=== PATIENT | female | born 1980 | race Caucasian/White ===

== ENCOUNTER 2016-11-27 11:51 | Inpatient (IN) | payer MEDICAID ==
[~2016-11-27] VITALS: Ht 167.6 cm; Wt 63.1 kg
[~2016-11-27 11:51] MED LIST: ALBU0.084; TRAM-297
[2016-11-27] MEDS ORDERED: SODIUM CHLORIDE 0.9% 1,000 ML IV ONE ×2 (15:10)
[2016-11-27] MEDS ORDERED: CLINDAMYCIN 900MG IV 50 ML IV ONE (15:15)
[2016-11-27] MEDS ORDERED: cefTRIAXone 1GM/50ML D5W 50 ML IV ONE (15:15)
[2016-11-27 16:03] LABS: Basophils # (auto) 0 uL; Basophils % (auto) 0.1 % (0.0-2.0); CONDITION AutoValidated; Eosinophils # (auto) 0 uL; Eosinophils % (auto) 0.8 % (0.0-7.0); Hematocrit 28.1 % (36.0-46.0); Hemoglobin 9.4 g/dL (12.2-16.2); Lymphocytes # (auto) 0.7 uL; Lymphocytes % (auto) 11.8 % (10.0-50.0); Mean Corpuscular Hemoglobin 31.5 pg (28.0-32.0); Mean Corpuscular Hgb Conc. 33.5 g/dL (32.0-36.0); Monocytes # (auto) 0.4 uL; Monocytes % (auto) 6.7 % (0.0-12.0); Neutrophils # (auto) 4.8 uL; Neutrophils % (auto) 80.6 % (37.0-80.0); Platelet Count (auto) 156 10^3/uL (140-450); Red Cell Distribution Width 12.9 % (11.6-16.0)
[2016-11-27 16:16] LABS: Partial Thromboplastin Time 33.1 sec (22.64-33.71)
[2016-11-27 16:28] LABS: Albumin 3.5 g/dL (3.4-5.0); BUN/Creatinine Ratio 20.4; Calcium 8.7 mg/dL (8.5-10.1); Potassium 3.7 mmol/L (3.5-5.1); Total Protein 7.3 g/dL (6.4-8.2)
[2016-11-27 16:43] LABS: INR 1.19 (0.9-1.15)
[2016-11-27] MEDS ORDERED: IOHEXOL 300 MG/ML 100ML BOTTLE IJ ONE (19:46)
[2016-11-27 20:07] LABS: Urine Bilirubin Negative (Negative); Urine Blood Negative /uL (Negative); Urine Color Yellow (Yellow); Urine Glucose Normal (Normal); Urine Nitrite Negative (Negative); Urine RBC <1 /hpf (0 - 4); Urine Squamous Epithelial Cell FEW /hpf (<5); Urine Urobilinogen Normal (Negative); Urine pH 6.5 (5.0-8.0)
[2016-11-27 20:08] LABS: Urine Ketone 1+ (Negative)
[2016-11-27] MEDS: SODIUM CHLORIDE 0.9% 1,000 ML IV SCH (22:30)
[2016-11-27] MEDS ORDERED: NITROGLYCERIN 0.4 MG SL TAB SL PRN (23:00)
[2016-11-27] MEDS ORDERED: ONDANSETRON HCL 4 MG/2 ML VIAL IV PRN (23:00)
[2016-11-27] MEDS ORDERED: ACETAMINOPHEN 325 MG TAB PO PRN (23:00)
[2016-11-27] MEDS ORDERED: MORPHINE SULF INJ 2 MG/ML SYRINGE 1ML IV PRN (23:00)
[2016-11-27] MEDS ORDERED: VANCOMYCIN PER PHARMACY 0 MG IV SCH (23:00)
[2016-11-27] MEDS: MORPHINE SULF INJ 2 MG/ML SYRINGE 1ML IV PRN (23:42)
[2016-11-28] MEDS ORDERED: VANCOMYCIN 1GM/250ML D5W 250 ML IV ONE
[2016-11-28 00:50] VITALS: BP 97/55
[2016-11-28 05:00] VITALS: BP 99/62
[2016-11-28 05:41] LABS: Basophils # (auto) 0 uL; Basophils % (auto) 0.1 % (0.0-2.0); CONDITION AutoValidated; Eosinophils # (auto) 0 uL; Eosinophils % (auto) 0.4 % (0.0-7.0); Hematocrit 38.1 % (36.0-46.0); Hemoglobin 12.7 g/dL (12.2-16.2); Lymphocytes % (auto) 9.8 % (10.0-50.0); Mean Corpuscular Hemoglobin 31.6 pg (28.0-32.0); Mean Corpuscular Hgb Conc. 33.4 g/dL (32.0-36.0); Mean Corpuscular Volume 94.4 fL (80.0-100.0); Mean Platelet Volume 10.8 fL (7.4-10.4); Monocytes # (auto) 0.7 uL; Monocytes % (auto) 7.1 % (0.0-12.0); Neutrophils # (auto) 8.2 uL; Neutrophils % (auto) 82.6 % (37.0-80.0); Platelet Count (auto) 225 10^3/uL (140-450); Red Cell Distribution Width 12.6 % (11.6-16.0); White Blood Cell 9.9 10^3/uL (4.4-10.8)
[2016-11-28 05:50] LABS: Albumin 2.8 g/dL (3.4-5.0); BUN/Creatinine Ratio 13.3; Calcium 7.8 mg/dL (8.5-10.1); Potassium 3.8 mmol/L (3.5-5.1)
[2016-11-28 05:53] LABS: Bilirubin, Total 0.5 mg/dL (0.2-1.0); Total Protein 6.6 g/dL (6.4-8.2)
[2016-11-28] MEDS: HYDROcodone-ACET 5/325MG TAB PO PRN ×2 (06:02→20:33)
[2016-11-28] MEDS: VANCOMYCIN 1GM/250ML D5W 250 ML IV SCH ×3 (07:58→23:54)
[2016-11-28 08:30] VITALS: BP 99/62
[2016-11-28] MEDS: MORPHINE SULF INJ 2 MG/ML SYRINGE 1ML IV PRN ×4 (09:00→22:31)
[2016-11-28] MEDS: cefTRIAXone 1GM/50ML D5W 50 ML IV SCH (09:00)
[2016-11-28] MEDS: ENOXAPARIN SOD 40 MG/0.4 ML SYRINGE SC SCH (09:37)
[2016-11-28] MEDS ORDERED: ENOXAPARIN SOD 30 MG/0.3 ML SYRINGE SC SCH (10:00)
[2016-11-28] MEDS: BACITRACIN-POLYMYXIN B TOPICAL OINT UD TOP SCH (14:00)
[2016-11-28] MEDS: ALPRAZolam 0.5 MG TAB PO PRN (14:44)
[2016-11-28] MEDS: SODIUM CHLORIDE 0.9% 1,000 ML IV SCH (15:30)
[2016-11-28 16:53] VITALS: BP 92/54
[2016-11-28 21:50] VITALS: BP 116/79
[2016-11-28] MEDS: TEMAZEPAM 15 MG CAP PO PRN (22:37)
[2016-11-29] MEDS: MORPHINE SULF INJ 2 MG/ML SYRINGE 1ML IV PRN ×5 (04:46→23:06)
[2016-11-29 05:47] VITALS: BP 104/73
[2016-11-29 07:19] LABS: Basophils # (auto) 0 uL; Basophils % (auto) 0.4 % (0.0-2.0); CONDITION AutoValidated; Eosinophils # (auto) 0.1 uL; Eosinophils % (auto) 1.8 % (0.0-7.0); Hematocrit 36.5 % (36.0-46.0); Hemoglobin 12.3 g/dL (12.2-16.2); Lymphocytes # (auto) 1.3 uL; Lymphocytes % (auto) 18.2 % (10.0-50.0); Mean Corpuscular Hemoglobin 31.4 pg (28.0-32.0); Mean Corpuscular Hgb Conc. 33.8 g/dL (32.0-36.0); Mean Corpuscular Volume 92.8 fL (80.0-100.0); Mean Platelet Volume 10.4 fL (7.4-10.4); Monocytes # (auto) 0.6 uL; Monocytes % (auto) 8.6 % (0.0-12.0); Platelet Count (auto) 225 10^3/uL (140-450); Red Cell Distribution Width 12.4 % (11.6-16.0)
[2016-11-29 07:51] LABS: BUN/Creatinine Ratio 13.2; Calcium 8.1 mg/dL (8.5-10.1); Potassium 3.9 mmol/L (3.5-5.1)
[2016-11-29] MEDS: SODIUM CHLORIDE 0.9% 1,000 ML IV SCH (08:10)
[2016-11-29] MEDS: VANCOMYCIN 1GM/250ML D5W 250 ML IV SCH ×2 (08:36→16:15)
[2016-11-29] MEDS: cefTRIAXone 1GM/50ML D5W 50 ML IV SCH (08:50)
[2016-11-29 09:00] VITALS: BP 118/81
[2016-11-29] MEDS: BACITRACIN-POLYMYXIN B TOPICAL OINT UD TOP SCH (09:39)
[2016-11-29] MEDS: ENOXAPARIN SOD 40 MG/0.4 ML SYRINGE SC SCH (09:40)
[2016-11-29 13:00] VITALS: BP 95/69
[2016-11-29] MEDS: MULTIPLE VITAMINS W/ MINERALS TAB PO SCH (16:15)
[2016-11-29] MEDS: ALPRAZolam 0.5 MG TAB PO PRN (16:56)
[2016-11-29] MEDS: HYDROcodone-ACET 5/325MG TAB PO PRN (19:49)
[2016-11-29] MEDS: PRO-STAT 64 30ML PO SCH (20:56)
[2016-11-29 21:42] VITALS: BP 112/70
[2016-11-29] MEDS: ASCORBIC ACID 500 MG TAB PO SCH (22:15)
[2016-11-29] MEDS: TEMAZEPAM 15 MG CAP PO PRN (22:15)
[2016-11-30] MEDS: VANCOMYCIN 1GM/250ML D5W 250 ML IV SCH ×2 (00:12→07:48)
[2016-11-30] MEDS: SODIUM CHLORIDE 0.9% 1,000 ML IV SCH (01:17)
[2016-11-30 05:22] VITALS: BP 106/72
[2016-11-30 06:54] LABS: Calcium 8.2 mg/dL (8.5-10.1); Potassium 3.6 mmol/L (3.5-5.1)
[2016-11-30] MEDS: MORPHINE SULF INJ 2 MG/ML SYRINGE 1ML IV PRN ×2 (07:48→13:32)
[2016-11-30 08:20] VITALS: BP 104/71
[2016-11-30] MEDS: MULTIPLE VITAMINS W/ MINERALS TAB PO SCH (09:54)
[2016-11-30] MEDS: BACITRACIN-POLYMYXIN B TOPICAL OINT UD TOP SCH (09:54)
[2016-11-30] MEDS: ENOXAPARIN SOD 40 MG/0.4 ML SYRINGE SC SCH (09:54)
[2016-11-30] MEDS: cefTRIAXone 1GM/50ML D5W 50 ML IV SCH (09:54)
[2016-11-30] MEDS: ASCORBIC ACID 500 MG TAB PO SCH (09:54)
[2016-11-30] MEDS: PRO-STAT 64 30ML PO SCH (09:58)
[2016-11-30] MEDS: HYDROcodone-ACET 5/325MG TAB PO PRN (11:02)
[2016-11-30] MEDS: ALPRAZolam 0.5 MG TAB PO PRN (11:34)
[2016-11-30 12:55] VITALS: BP 101/52
[2016-11-30] MEDS ORDERED: AMOXICILLIN/CLAVUL 875 MG TAB PO ONE (14:30)
[2016-11-30 15:53] VITALS: BP 101/52
== END 2016-11-30 16:20 | disposition home or self-care (01) | DRG 383 ==
LOC: ER 11:55 → TELE 11:56 → TELE-CENTR 11-28 00:50
PROVIDERS: ADMIT Nurse Practitioner; ATTEND Internal Medicine
DX: L03.211 Cellulitis of face (principal); E46 Unspecified protein-calorie malnutrition; D50.9 Iron deficiency anemia, unspecified; J45.909 Unspecified asthma, uncomplicated; F17.210 Nicotine dependence, cigarettes, uncomplicated; Z90.49 Acquired absence of other specified parts of digestive tract; Z68.22 Body mass index [BMI] 22.0-22.9, adult; L03.213 Periorbital cellulitis; Z71.89 Other specified counseling
CPT/HCPCS: 36415; 70486; 70487; 71010; 80048; 80053; 80202; 81001; 83605; 85025; 85610; 85730; 87040; 87077; 87186; 87205; 96365; 96366; 96368; 96375; J0696; J2405; J3490

== ENCOUNTER 2019-04-11 14:42 | Emergency (ER) | payer MEDICAID ==
[~2019-04-11] VITALS: Ht 165.1 cm; Wt 68.0 kg
[2019-04-11 16:13] LABS: Urine Bacteria NONE SEEN /hpf (None Seen); Urine Blood Negative /uL (Negative); Urine Specific Gravity 1.028 (1.001-1.035); Urine WBC 12 /hpf (0 - 5)
[2019-04-11 16:46] VITALS: BP 102/70
== END 2019-04-11 18:14 | disposition home or self-care (01) ==
LOC: ER 14:42
DX: N39.0 Urinary tract infection, site not specified (principal); F17.210 Nicotine dependence, cigarettes, uncomplicated; Z90.49 Acquired absence of other specified parts of digestive tract
CPT/HCPCS: 36415; 81001; 81025; 84702

== ENCOUNTER 2019-11-14 20:01 | Emergency (ER) | payer SELFPAY ==
[~2019-11-14] VITALS: Ht 165.1 cm; Wt 78.0 kg
[2019-11-14 20:34] VITALS: BP 138/79
== END 2019-11-14 20:42 | disposition left against medical advice (07) ==
LOC: ER 20:01
DX: R10.9 Unspecified abdominal pain (principal); F17.210 Nicotine dependence, cigarettes, uncomplicated; Z90.49 Acquired absence of other specified parts of digestive tract

== ENCOUNTER 2019-12-25 15:06 | Emergency (ER) | payer SELFPAY ==
[~2019-12-25] VITALS: Ht 165.1 cm; Wt 77.1 kg
[2019-12-25 15:23] VITALS: BP 116/69
[2019-12-25 16:42] LABS: Basophils # (auto) 0 10 ^3/uL (0-0.2); Basophils % (auto) 0.6 % (0.0-2.0); Eosinophils # (auto) 0.1 10 ^3/uL (0-0.8); Eosinophils % (auto) 3.2 % (0.0-7.0); Hematocrit 39.2 % (36.0-46.0); Hemoglobin 12.9 g/dL (12.2-16.2); Lymphocytes # (auto) 1.3 10 ^3/uL (0.4-5.4); Lymphocytes % (auto) 28.4 % (10.0-50.0); Mean Corpuscular Hemoglobin 30.7 pg (28.0-32.0); Mean Corpuscular Hgb Conc. 32.9 g/dL (32.0-36.0); Mean Corpuscular Volume 93.1 fL (80.0-100.0); Monocytes # (auto) 0.5 10 ^3/uL (0-1.3); Monocytes % (auto) 10.4 % (0.0-12.0); Neutrophils # (auto) 2.6 10 ^3/uL (1.6-8.6); Neutrophils % (auto) 57.4 % (37.0-80.0); Nucleated Red Blood Cells % 0.2 %; Platelet Count (auto) 246 10^3/uL (140-450); Red Cell Distribution Width 12.3 % (11.8-14.3); White Blood Cell 4.6 10^3/uL (4.4-10.8)
== END 2019-12-25 18:21 | disposition home or self-care (01) ==
LOC: ER 15:06
DX: Z32.02 Encounter for pregnancy test, result negative (principal); F17.210 Nicotine dependence, cigarettes, uncomplicated; Z90.49 Acquired absence of other specified parts of digestive tract
CPT/HCPCS: 36415; 84702; 85025

== ENCOUNTER 2020-01-06 22:26 | Emergency (ER) | payer SELFPAY ==
[~2020-01-06] VITALS: Ht 165.1 cm; Wt 74.8 kg
[2020-01-06 22:50] VITALS: BP 121/88
[2020-01-06 23:22] LABS: Urine Bacteria FEW /hpf (None Seen); Urine Blood Negative /uL (Negative); Urine Mucus FEW (None Seen); Urine Specific Gravity 1.018 (1.001-1.035); Urine WBC 2 /hpf (0 - 5)
[2020-01-06 23:40] LABS: Alcohol, Urine < 3.0 mg/dL (0-10); Amphetamine Screen, Urine POSITIVE (NEGATIVE); Barbiturate Scree,Urine NEGATIVE (NEGATIVE); Benzodiazephine Screen, Urine NEGATIVE (NEGATIVE); Cannabinoid Screen, Urine NEGATIVE (NEGATIVE); Cocaine Screen, Urine NEGATIVE (NEGATIVE)
[2020-01-06 23:47] LABS: Opiate Scree,Urine NEGATIVE (NEGATIVE); Phencyclidine Screen, Urine POSITIVE (NEGATIVE)
[2020-01-07 00:10] LABS: Basophils # (auto) 0 10 ^3/uL (0-0.2); Basophils % (auto) 0.8 % (0.0-2.0); Eosinophils # (auto) 0.1 10 ^3/uL (0-0.8); Eosinophils % (auto) 2.8 % (0.0-7.0); Hematocrit 39.4 % (36.0-46.0); Lymphocytes # (auto) 1.2 10 ^3/uL (0.4-5.4); Lymphocytes % (auto) 29.9 % (10.0-50.0); Mean Corpuscular Hemoglobin 30.3 pg (28.0-32.0); Mean Corpuscular Volume 91.9 fL (80.0-100.0); Monocytes # (auto) 0.6 10 ^3/uL (0-1.3); Monocytes % (auto) 14.5 % (0.0-12.0); Neutrophils # (auto) 2.1 10 ^3/uL (1.6-8.6); Platelet Count (auto) 249 10^3/uL (140-450); Red Blood Cells 4.28 10^6/uL (4.0-5.20); Red Cell Distribution Width 12.8 % (11.8-14.3)
[2020-01-07 00:27] LABS: Albumin 3.1 g/dL (3.4-5.0); BUN/Creatinine Ratio 16.1; Calcium 8.4 mg/dL (8.5-10.1)
[2020-01-07 00:30] LABS: Bilirubin, Total 0.3 mg/dL (0.2-1.0); Total Protein 6.9 g/dL (6.4-8.2)
== END 2020-01-07 03:57 | disposition left against medical advice (07) ==
LOC: ER 22:26
DX: R42 Dizziness and giddiness (principal); Z53.21 Procedure and treatment not carried out due to patient leaving prior to being seen by health care provider
CPT/HCPCS: 36415; 80053; 80307; 81001; 85025; 93005

== ENCOUNTER 2020-02-26 21:41 | Emergency (ER) | payer SELFPAY ==
[~2020-02-26] VITALS: Ht 165.1 cm; Wt 79.4 kg
[2020-02-26 22:10] VITALS: BP 125/83
== END 2020-02-26 22:06 | disposition left against medical advice (07) ==
LOC: ER 21:43
DX: R51 Headache (principal); Z53.21 Procedure and treatment not carried out due to patient leaving prior to being seen by health care provider